=== PATIENT | male | born 1965 | race Caucasian/White ===

== ENCOUNTER 2021-12-19 02:36 | Inpatient (IN) | payer BC ==
[2021-12-19] MEDS ORDERED: Naloxone 0.4 MG/ML SDV IVPUSH PRN (03:40)
[2021-12-19] MEDS ORDERED: Dextrose 5%-Lactated Ringers 1,000 ML IV SCH (03:45)
[2021-12-19] MEDS ORDERED: AMPICILLIN ONE (03:56)
[2021-12-19] MEDS ORDERED: SULBACTAM NA ONE (03:56)
[2021-12-19] MEDS ORDERED: Ondansetron 4 MG/2 ML SDV ONE ×2 (03:57→10:15)
[2021-12-19] MEDS ORDERED: Sodium Chloride 0.9% 100 ML ONE (03:59)
[2021-12-19] MEDS: Ondansetron 4 MG/2 ML SDV IVPUSH PRN ×2 (04:06→08:41)
[2021-12-19] MEDS: HYDROmorphone/Normal Saline 6 MG/30 ML PCA Vial IV PRN (04:07)
[2021-12-19] MEDS: Ampicillin/Sulbactam Na 3 GM in Sodium Chloride 0.9% 100 ML IV SCH ×3 (04:08→17:25)
[2021-12-19] MEDS ORDERED: Ketamine 500 MG/5 ML MDV IV SCH ×3 (08:00→12:00)
[2021-12-19 08:40] LABS: ESTIMATED GFR 105 mL/min (>60)
[2021-12-19] MEDS ORDERED: fentaNYL 250 MCG/5 ML SDV ONE ×2 (10:14→13:51)
[2021-12-19] MEDS ORDERED: Dexamethasone 4 MG/ML SDV ONE (10:15)
[2021-12-19] MEDS ORDERED: Glycopyrrolate 0.2 MG/ML 5 ML MDV ONE (10:15)
[2021-12-19] MEDS ORDERED: Succinylcholine 200 MG/10 ML MDV ONE (10:15)
[2021-12-19] MEDS ORDERED: Rocuronium 50 MG/5 ML Vial ONE ×3 (10:15→15:17)
[2021-12-19] MEDS ORDERED: Neostigmine Methylsulfate 1 MG/ML 5 ML Syringe ONE (10:15)
[2021-12-19] MEDS ORDERED: Propofol 200 MG/20 ML SDV ONE (10:15)
[2021-12-19] MEDS ORDERED: Meropenem 500 MG SDV ONE (11:42)
[2021-12-19] MEDS ORDERED: Lidocaine 1% with EPINEPHrine 1:100,000 50 ML MDV ONE (11:42)
[2021-12-19] MEDS ORDERED: Bupivacaine 0.5% 50 ML MDV ONE (11:42)
[2021-12-19] MEDS ORDERED: cefOXitin 2 GM in Sodium Chloride 0.9% 50 ML IV ONE (12:00)
[2021-12-19] MEDS ORDERED: Ketamine 24 MG in Sodium Chloride 0.9% 19.76 ML IV SCH (12:00)
[2021-12-19] MEDS ORDERED: Lactated Ringers 1,000 ML ONE ×2 (13:03→14:24)
[2021-12-19] MEDS ORDERED: Linezolid 600 MG/300 ML Premix Bag IRR ONE (13:13)
[2021-12-19] MEDS ORDERED: Labetalol 20 MG/4 ML Syringe ONE (15:14)
[2021-12-19] MEDS ORDERED: Sugammadex Sodium 200 MG/2 ML VIAL ONE (16:43)
[2021-12-19] MEDS ORDERED: Cyclobenzaprine 10 MG Tab PO PRN (17:15)
[2021-12-19] MEDS: MVI, Adult with Vitamin K 10 ML, Thiamine 200 MG, Zinc/Copper/Manganese/Selenium 1 ML i... IV SCH ×4 (17:36)
[2021-12-19] MEDS: cefOXitin 2 GM in Sodium Chloride 0.9% 50 ML IV SCH ×2 (17:36→23:56)
[2021-12-19] MEDS: Acetaminophen 500 MG Tab PO SCH (17:53)
[2021-12-19] MEDS ORDERED: Labetalol 20 MG/4 ML Syringe IVPUSH PRN (18:00)
[2021-12-19] MEDS ORDERED: hydrOXYzine HCL 100 MG/2 ML SDV IM PRN (18:00)
[2021-12-19] MEDS ORDERED: Metoclopramide 10 MG/2 ML SDV IVPUSH PRN (18:00)
[2021-12-19] MEDS ORDERED: diphenhydrAMINE 50 MG/ML SDV IVPUSH PRN (18:00)
[2021-12-19] MEDS ORDERED: Ondansetron 4 MG/2 ML SDV IVPUSH PRN (18:00)
[2021-12-19] MEDS ORDERED: Acetaminophen 500 MG Tab PO PRN (18:00)
[2021-12-19] MEDS ORDERED: Albuterol/Ipratropium 3.0-0.5 MG/3 ML Neb Soln INH PRN (18:00)
[2021-12-19] MEDS ORDERED: Pantoprazole 40 MG Vial IVPUSH SCH (18:00)
[2021-12-19] MEDS: Heparin Sodium 5,000 Units/ML Vial SUBCUT SCH (21:44)
[2021-12-19] MEDS: Dextrose 5%-Lactated Ringers 1,000 ML IV SCH (23:53)
[2021-12-20] MEDS: Acetaminophen 500 MG Tab PO SCH ×3 (03:27→17:16)
[2021-12-20] MEDS ORDERED: Iopamidol 612 MG/ML 50 ML SDV PO STA (03:57)
[2021-12-20] MEDS: HYDROmorphone/Normal Saline 6 MG/30 ML PCA Vial IV PRN ×2 (04:22→22:23)
[2021-12-20 05:14] LABS: ESTIMATED GFR 89 mL/min (>60)
[2021-12-20] MEDS: cefOXitin 2 GM in Sodium Chloride 0.9% 50 ML IV SCH ×3 (05:37→18:02)
[2021-12-20] MEDS: Dextrose 5%-Lactated Ringers 1,000 ML IV SCH (06:42)
[2021-12-20 06:58] LABS: HEMOGLOBIN A1C 5.7 % (4.5-6.2)
[2021-12-20] MEDS: Levothyroxine 25 MCG Tab PO SCH (07:35)
[2021-12-20] MEDS ORDERED: Ondansetron 4 MG Tab.DIS PO PRN (07:59)
[2021-12-20] MEDS ORDERED: Dextrose 5%-Lactated Ringers 1,000 ML IV SCH (08:00)
[2021-12-20] MEDS: Celecoxib 200 MG Cap PO SCH ×2 (08:50→21:49)
[2021-12-20] MEDS: Tamsulosin 0.4 MG Cap.ER PO SCH ×2 (08:52→21:49)
[2021-12-20] MEDS: Heparin Sodium 5,000 Units/ML Vial SUBCUT SCH ×2 (08:56→21:49)
[2021-12-20] MEDS: Pantoprazole 40 MG Delayed-Release Granules 1 Packet PO SCH (17:17)
[2021-12-20] MEDS: MVI, Adult with Vitamin K 10 ML, Thiamine 200 MG, Zinc/Copper/Manganese/Selenium 1 ML i... IV SCH ×4 (18:03)
[2021-12-21] MEDS: cefOXitin 2 GM in Sodium Chloride 0.9% 50 ML IV SCH ×3 (00:58→11:21)
[2021-12-21] MEDS: Acetaminophen 500 MG Tab PO SCH ×3 (01:00→18:11)
[2021-12-21] MEDS ORDERED: Cyclobenzaprine 10 MG Tab PO PRN (07:13)
[2021-12-21] MEDS ORDERED: hydrOXYzine HCl 25 MG Tab PO PRN ×2 (07:13→07:16)
[2021-12-21] MEDS: Levothyroxine 25 MCG Tab PO SCH (07:58)
[2021-12-21] MEDS: Celecoxib 200 MG Cap PO SCH ×2 (08:03→21:23)
[2021-12-21] MEDS: Bisacodyl 5 MG Tab PO SCH ×2 (08:04→21:23)
[2021-12-21] MEDS: Docusate Sodium 100 MG Cap PO SCH ×2 (08:04→21:23)
[2021-12-21] MEDS: Tamsulosin 0.4 MG Cap.ER PO SCH ×2 (08:06→21:23)
[2021-12-21] MEDS: Heparin Sodium 5,000 Units/ML Vial SUBCUT SCH ×2 (08:07→21:23)
[2021-12-21] MEDS ORDERED: Cyanocobalamin (Vitamin B12) 1,000 MCG/ML SDV IM ONE (09:00)
[2021-12-21] MEDS: HYDROmorphone 2 MG Tab PO PRN ×3 (11:22→23:20)
[2021-12-21] MEDS: Pantoprazole 40 MG Delayed-Release Granules 1 Packet PO SCH (17:00)
[2021-12-22] MEDS: Acetaminophen 500 MG Tab PO SCH ×2 (03:35→09:03)
[2021-12-22] MEDS: HYDROmorphone 2 MG Tab PO PRN (05:21)
[2021-12-22] MEDS: Levothyroxine 25 MCG Tab PO SCH (07:55)
[2021-12-22] MEDS: Celecoxib 200 MG Cap PO SCH (08:52)
[2021-12-22] MEDS: Tamsulosin 0.4 MG Cap.ER PO SCH (08:52)
[2021-12-22] MEDS: Docusate Sodium 100 MG Cap PO SCH (08:53)
[2021-12-22] MEDS: Heparin Sodium 5,000 Units/ML Vial SUBCUT SCH (08:53)
[2021-12-22] MEDS: Bisacodyl 5 MG Tab PO SCH (08:53)
== END 2021-12-22 17:02 | disposition home or self-care (01) | DRG 221 ==
LOC: JP.MS 03:27
PROVIDERS: ADMIT Surgery; ATTEND Surgery
PROC: 0DB80ZZ Excision of Small Intestine, Open Approach (ICD-10-PCS; principal; 2021-12-19)
PROC: 0FT40ZZ Resection of Gallbladder, Open Approach (ICD-10-PCS; 2021-12-19)
PROC: 0DBW0ZZ Excision of Peritoneum, Open Approach (ICD-10-PCS; 2021-12-19)
PROC: 0WPF0JZ Removal of Synthetic Substitute from Abdominal Wall, Open Approach (ICD-10-PCS; 2021-12-19)
PROC: 3E0M05Z Introduction of Adhesion Barrier into Peritoneal Cavity, Open Approach (ICD-10-PCS; 2021-12-19)
PROC: 0JB80ZZ Excision of Abdomen Subcutaneous Tissue and Fascia, Open Approach (ICD-10-PCS; 2021-12-19)
DX: K95.89 Other complications of other bariatric procedure (principal); K56.51 Intestinal adhesions [bands], with partial obstruction; K56.690 Other partial intestinal obstruction; K80.10 Calculus of gallbladder with chronic cholecystitis without obstruction; D17.1 Benign lipomatous neoplasm of skin and subcutaneous tissue of trunk; E03.9 Hypothyroidism, unspecified; G47.30 Sleep apnea, unspecified; E53.8 Deficiency of other specified B group vitamins; Z79.899 Other long term (current) drug therapy; Z79.890 Hormone replacement therapy
CPT/HCPCS: 36415; 74240; 80053; 82306; 82525; 82607; 82728; 82746; 83036; 83735; 83880; 84100; 84425; 84443; 84590; 84630; 85025; 88300; 88304; 88305; 88307; A9270-GY; C9113; J0171; J0295; J0330; J0694; J1100; J1170; J1644; J2020; J2185; J2405; J2704; J2710; J2795; J3010; J3410; J3411; J3420; J3490; J7120; J7121; Q9967

== ENCOUNTER 2022-09-06 06:49 | Inpatient (IN) | payer BC ==
[~2022-09-06 06:49] MED LIST: Bupivacaine 0.5% 50 ML MDV ONE; Lidocaine 1% with EPINEPHrine 1:100,000 50 ML MDV ONE; Meropenem 500 MG SDV ONE
[2022-09-06] MEDS ORDERED: diphenhydrAMINE 50 MG/ML SDV IVPUSH PRN ×2 (07:27→13:00)
[2022-09-06] MEDS ORDERED: Naloxone 0.4 MG/ML SDV IVPUSH PRN (07:27)
[2022-09-06] MEDS ORDERED: Ondansetron 4 MG/2 ML SDV IVPUSH PRN ×2 (07:27→13:00)
[2022-09-06] MEDS ORDERED: diphenhydrAMINE 25 MG Cap PO PRN (07:27)
[2022-09-06] MEDS ORDERED: Dextrose 5%-Lactated Ringers 1,000 ML IV SCH ×2 (07:45→13:00)
[2022-09-06 07:51] LABS: TSH ULTRASENSITIVE 6.546 uIU/mL (0.358-3.740)
[2022-09-06] MEDS ORDERED: Scopolamine 1.5 MG Transdermal Patch TOP SCH (08:00)
[2022-09-06] MEDS ORDERED: Naloxone 0.4 MG/ML SDV IV PRN (08:00)
[2022-09-06] MEDS ORDERED: Albuterol/Ipratropium 3.0-0.5 MG/3 ML Neb Soln NEB ONE (08:00)
[2022-09-06] MEDS: HYDROmorphone/Normal Saline 6 MG/30 ML PCA Vial IV PRN (08:08)
[2022-09-06] MEDS ORDERED: Ketamine 500 MG/5 ML MDV IV SCH (08:30)
[2022-09-06] MEDS ORDERED: Ketamine 23 MG in Sodium Chloride 0.9% 19.77 ML IV SCH (08:30)
[2022-09-06] MEDS ORDERED: Neostigmine Methylsulfate 1 MG/ML 5 ML Syringe ONE (08:40)
[2022-09-06] MEDS ORDERED: Dexamethasone 4 MG/ML SDV ONE (08:40)
[2022-09-06] MEDS ORDERED: Ondansetron 4 MG/2 ML SDV ONE (08:40)
[2022-09-06] MEDS ORDERED: Rocuronium 50 MG/5 ML Vial ONE ×2 (08:40→10:25)
[2022-09-06] MEDS ORDERED: Succinylcholine 200 MG/10 ML MDV ONE (08:40)
[2022-09-06] MEDS ORDERED: Propofol 200 MG/20 ML SDV ONE (08:40)
[2022-09-06] MEDS ORDERED: Glycopyrrolate 0.2 MG/ML 5 ML MDV ONE (08:40)
[2022-09-06] MEDS ORDERED: fentaNYL 250 MCG/5 ML SDV ONE (08:40)
[2022-09-06] MEDS ORDERED: ceFAZolin 2 GM in Premix Bag 1 BAG IV ONE (09:15)
[2022-09-06] MEDS ORDERED: ceFAZolin 2 GM in Sodium Chloride 0.9% 50 ML IV ONE (09:15)
[2022-09-06] MEDS ORDERED: Lactated Ringers 1,000 ML ONE (10:54)
[2022-09-06] MEDS ORDERED: Linezolid 600 MG/300 ML Premix Bag IRR ONE (11:03)
[2022-09-06] MEDS ORDERED: fentaNYL 100 MCG/2 ML SDV ONE (11:25)
[2022-09-06] MEDS ORDERED: Sugammadex Sodium 200 MG/2 ML VIAL ONE (11:33)
[2022-09-06] MEDS ORDERED: Metoclopramide 10 MG/2 ML SDV IVPUSH PRN (13:00)
[2022-09-06] MEDS ORDERED: Albuterol/Ipratropium 3.0-0.5 MG/3 ML Neb Soln INH PRN (13:00)
[2022-09-06] MEDS ORDERED: Acetaminophen 500 MG Tab PO PRN (13:00)
[2022-09-06] MEDS ORDERED: Labetalol 20 MG/4 ML Syringe IVPUSH PRN (13:00)
[2022-09-06] MEDS ORDERED: hydrOXYzine HCl 50 MG/ML SDV IM PRN (13:00)
[2022-09-06] MEDS ORDERED: Pantoprazole 40 MG Vial IVPUSH SCH (14:00)
[2022-09-06] MEDS: Albuterol/Ipratropium 3.0-0.5 MG/3 ML Neb Soln INH SCH ×2 (14:23→19:59)
[2022-09-06] MEDS: MVI, Adult with Vitamin K 10 ML, Thiamine 200 MG, Zinc/Copper/Manganese/Selenium 1 ML i... IV SCH ×4 (15:32)
[2022-09-06] MEDS: ceFAZolin 2 GM in Premix Bag 1 BAG IV SCH (17:28)
[2022-09-06] MEDS: Acetaminophen 500 MG Tab PO SCH (17:29)
[2022-09-06] MEDS: Heparin Sodium 5,000 Units/ML Vial SUBCUT SCH (17:30)
[2022-09-06] MEDS: Tamsulosin 0.4 MG Cap.ER PO SCH (19:59)
[2022-09-07] MEDS: Heparin Sodium 5,000 Units/ML Vial SUBCUT SCH ×3 (02:40→19:08)
[2022-09-07] MEDS: Acetaminophen 500 MG Tab PO SCH ×3 (02:40→19:08)
[2022-09-07] MEDS: ceFAZolin 2 GM in Premix Bag 1 BAG IV SCH ×2 (02:40→09:18)
[2022-09-07 04:54] LABS: BASOPHILS PERCENT AUTO 0.1 % (0.1-1.3); HEMATOCRIT 33.4 % (38.4-49.7); HEMOGLOBIN 10.8 g/dL (12.9-16.9); IMMATURE GRAN ABSOLUTE AUTO 0.07 K/uL (0.00-0.23); IMMATURE GRAN PERCENT AUTO 0.5 % (0.0-0.7); LYMPHOCYTES ABSOLUTE AUTO 0.73 K/uL (0.8-3.3); LYMPHOCYTES PERCENT AUTO 5.4 % (11.4-47.7); MEAN CORPUSCULAR HGB CONC 32.3 g/dL (31.6-35.5); MEAN CORPUSCULAR VOLUME 99.1 fL (81.4-99.0); MONOCYTES ABSOLUTE AUTO 1.13 K/uL (0.20-0.90); MONOCYTES PERCENT AUTO 8.3 % (3.3-12.6); NEUTROPHILS ABSOLUTE AUTO 11.68 K/uL (1.0-7.6); NEUTROPHILS PERCENT AUTO 85.7 % (40.0-78.1); PLATELET COUNT,PLT 201 K/uL (130-375); RED BLOOD CELL COUNT 3.37 M/uL (4.14-5.76); WHITE BLOOD CELL COUNT,WBC 13.6 K/uL (3.2-11.0)
[2022-09-07 04:59] LABS: BASOPHILS ABSOLUTE AUTO 0.01 K/uL (0.00-0.10)
[2022-09-07 05:15] LABS: A/G RATIO 0.8 (1.2-2.2); ALANINE AMINOTRANSFERASE,ALT 100 U/L (12-78); ALBUMIN 2.8 g/dL (3.4-5.0); ALKALINE PHOSPHATASE 115 U/L (46-116); ASPARTATE AMNIOTRANSFERASE,AST 78 U/L (15-37); BILIRUBIN TOTAL 0.5 mg/dL (0.2-1.0); BLOOD UREA NITROGEN,BUN 18 mg/dL (7-18); CALCIUM 7.8 mg/dL (8.5-10.1); CARBON DIOXIDE,CO2 26 mmol/L (21-32); CHLORIDE,CL 103 mmol/L (100-108); CREATININE 1.1 mg/dL (0.8-1.3); EST CRCL DRUG DOSING (CG) 83.28 mL/min; ESTIMATED GFR 79 mL/min (>60); GLUCOSE RANDOM 148 mg/dL (74-106); MAGNESIUM 1.5 mg/dL (1.8-2.4); POTASSIUM,K 4.1 mmol/L (3.6-5.2); PRO B-TYPE NATRIUR PEPT,BNPPRO 357 pg/mL (5-125); PROTEIN TOTAL,TP 6.3 g/dL (6.4-8.2); SODIUM,NA 137 mmol/L (140-148)
[2022-09-07 05:18] LABS: ANION GAP 12.1 mmol/L (5.0-14.0)
[2022-09-07] MEDS: HYDROmorphone/Normal Saline 6 MG/30 ML PCA Vial IV PRN ×2 (06:24→23:51)
[2022-09-07] MEDS: Albuterol/Ipratropium 3.0-0.5 MG/3 ML Neb Soln INH SCH ×4 (06:58→20:48)
[2022-09-07] MEDS: Levothyroxine 25 MCG Tab PO SCH (08:10)
[2022-09-07] MEDS: Bisacodyl 5 MG Tab PO SCH ×2 (09:18→20:42)
[2022-09-07] MEDS: Celecoxib 200 MG Cap PO SCH ×2 (09:18→20:42)
[2022-09-07] MEDS: Docusate Sodium 100 MG Cap PO SCH ×2 (09:18→20:42)
[2022-09-07] MEDS: SCOPOLAMINE PATCH CHECK TOP SCH (09:19)
[2022-09-07] MEDS: Magnesium Sulfate/Water 2 GM in Premix Bag 1 BAG IV SCH ×3 (10:10→22:24)
[2022-09-07] MEDS: Dextrose 5%-Lactated Ringers 1,000 ML IV SCH (12:54)
[2022-09-07] MEDS: MVI, Adult with Vitamin K 10 ML, Thiamine 200 MG, Zinc/Copper/Manganese/Selenium 1 ML i... IV SCH ×4 (17:23)
[2022-09-07] MEDS: Pantoprazole 40 MG Delayed-Release Granules 1 Packet PO SCH (17:28)
[2022-09-07] MEDS: Tamsulosin 0.4 MG Cap.ER PO SCH (20:42)
[2022-09-08] MEDS: Cyclobenzaprine 10 MG Tab PO PRN ×2 (00:40→21:47)
[2022-09-08] MEDS: Heparin Sodium 5,000 Units/ML Vial SUBCUT SCH ×3 (02:41→17:20)
[2022-09-08] MEDS: Acetaminophen 500 MG Tab PO SCH ×3 (02:41→17:20)
[2022-09-08] MEDS: Dextrose 5%-Lactated Ringers 1,000 ML IV SCH (03:50)
[2022-09-08] MEDS: Magnesium Sulfate/Water 2 GM in Premix Bag 1 BAG IV SCH (03:51)
[2022-09-08] MEDS: Albuterol/Ipratropium 3.0-0.5 MG/3 ML Neb Soln INH SCH ×4 (07:17→21:48)
[2022-09-08] MEDS: Levothyroxine 25 MCG Tab PO SCH (07:58)
[2022-09-08] MEDS: Bisacodyl 5 MG Tab PO SCH ×2 (08:01→21:45)
[2022-09-08] MEDS: Docusate Sodium 100 MG Cap PO SCH ×2 (08:01→21:45)
[2022-09-08] MEDS: SCOPOLAMINE PATCH CHECK TOP SCH (08:01)
[2022-09-08] MEDS: Celecoxib 200 MG Cap PO SCH ×2 (08:01→21:45)
[2022-09-08] MEDS: oxyCODONE 5 MG Tab PO PRN ×3 (08:17→16:39)
[2022-09-08] MEDS ORDERED: Magnesium Hydroxide 400 MG/5 ML Susp 30 ML Cup PO ONE (08:30)
[2022-09-08] MEDS ORDERED: Cyanocobalamin (Vitamin B12) 1,000 MCG/ML SDV IM ONE (09:00)
[2022-09-08] MEDS ORDERED: Magnesium Hydroxide 400 MG/5 ML Susp 30 ML Cup PO PRN (14:00)
[2022-09-08] MEDS: Pantoprazole 40 MG Delayed-Release Granules 1 Packet PO SCH (15:54)
[2022-09-08] MEDS: Tamsulosin 0.4 MG Cap.ER PO SCH (21:45)
[2022-09-09] MEDS: Acetaminophen 500 MG Tab PO SCH ×2 (02:13→10:15)
[2022-09-09] MEDS: Heparin Sodium 5,000 Units/ML Vial SUBCUT SCH ×2 (02:13→10:15)
[2022-09-09] MEDS: Albuterol/Ipratropium 3.0-0.5 MG/3 ML Neb Soln INH SCH (07:13)
[2022-09-09] MEDS: Levothyroxine 25 MCG Tab PO SCH (08:07)
[2022-09-09] MEDS: Bisacodyl 5 MG Tab PO SCH (08:07)
[2022-09-09] MEDS: Docusate Sodium 100 MG Cap PO SCH (08:07)
[2022-09-09] MEDS: Celecoxib 200 MG Cap PO SCH (08:07)
[2022-09-09] MEDS ORDERED: Levothyroxine 25 MCG Tab PO ONE (10:00)
[2022-09-09] MEDS: Cyclobenzaprine 10 MG Tab PO PRN (10:14)
== END 2022-09-09 11:25 | disposition home or self-care (01) | DRG 227 ==
LOC: JP.SDS 06:49 → JP.MS 11:25
PROVIDERS: ADMIT Surgery; ATTEND Surgery
PROC: 0WUF0JZ Supplement Abdominal Wall with Synthetic Substitute, Open Approach (ICD-10-PCS; principal; 2022-09-06)
PROC: 0W9G0ZZ Drainage of Peritoneal Cavity, Open Approach (ICD-10-PCS; 2022-09-06)
PROC: 0DBW0ZZ Excision of Peritoneum, Open Approach (ICD-10-PCS; 2022-09-06)
PROC: 3E0M05Z Introduction of Adhesion Barrier into Peritoneal Cavity, Open Approach (ICD-10-PCS; 2022-09-06)
DX: K43.0 Incisional hernia with obstruction, without gangrene (principal); K65.1 Peritoneal abscess; J45.909 Unspecified asthma, uncomplicated; E03.9 Hypothyroidism, unspecified; G47.33 Obstructive sleep apnea (adult) (pediatric); D50.9 Iron deficiency anemia, unspecified; N40.0 Benign prostatic hyperplasia without lower urinary tract symptoms; Z98.890 Other specified postprocedural states; Z79.890 Hormone replacement therapy; Z98.84 Bariatric surgery status; Z79.899 Other long term (current) drug therapy; Z90.49 Acquired absence of other specified parts of digestive tract; Z87.891 Personal history of nicotine dependence
CPT/HCPCS: 36415; 80053; 82728; 83735; 83880; 84100; 84443; 85025; 87070; 87075; 87205; 94640; A9270-GY; C1713; C1781; C9113; J0131; J0171; J0330; J0690; J1100; J1170; J1644; J2020; J2185; J2405; J2704; J2710; J2795; J3010; J3411; J3420; J3475; J3490; J7120; J7121; J7620